=== PATIENT | female | born 1935 | race Caucasian/White ===

== ENCOUNTER 2020-10-15 09:01 | Outpatient (REF) | payer MEDICARE, SELFPAY ==
[2020-10-15 10:27] LABS: INTERNATIONAL NORM RATIO 1.7 (0.9-1.1); Prothrombin Time 20.5 SEC (10.8-13.0)
== END 2020-10-15 09:02 | disposition home or self-care (01) ==
LOC: HO.LAB 09:01
PROVIDERS: PCP Family Medicine; Visit Provider Internal Medicine Cardiovascular Disease
DX: I48.91 Unspecified atrial fibrillation (principal)
CPT/HCPCS: 36415; 85610

== ENCOUNTER 2020-10-31 13:34 | Outpatient (REF) | payer MEDICARE, SELFPAY ==
[2020-10-31 15:03] LABS: Prothrombin Time 36.6 SEC (10.8-13.0)
== END 2020-10-31 13:35 | disposition home or self-care (01) ==
LOC: HO.LABR 13:34
PROVIDERS: PCP Internal Medicine Cardiovascular Disease; Visit Provider Internal Medicine Cardiovascular Disease
DX: I48.91 Unspecified atrial fibrillation (principal)
CPT/HCPCS: 36415; 85610

== ENCOUNTER 2020-11-17 13:30 | Emergency (ER) | payer MEDICARE, SELFPAY ==
[2020-11-17 13:49] VITALS: BP 158/78; PULSE 84; RESP 18; TEMP 36.7; O2SAT 95; BMI 25.7
--- NOTE | 2020-11-17 14:31 | ED.GENADULT ---
HPI - General Adult General Chief complaint: Extremity Problem <CHRISTIAN Johnson - Last Filed: 11/17/20 18:10> Stated complaint: abscess <CHRISTIAN Johnson - Last Filed: 11/17/20 18:10> Time Seen by Provider: 11/17/20 14:26 <CHRISTIAN Johnson - Last Filed: 11/17/20 18:10> History of Present Illness HPI narrative: Patient complains of a sore on the right inner thigh that is been there for several days, it got bigger a few days ago and then drained some bloody yellow fluid and was less swollen, no fever <CHRISTIAN Johnson - Last Filed: 11/17/20 18:10> Related Data Home medications: Previous Rx's Medication Instructions Recorded doxycycline hyclate 100 mg PO BID 7 Days #14 cap 11/17/20 <CHRISTIAN Johnson - Last Filed: 11/17/20 18:10> Allergies/adverse reactions: Allergies Allergy/AdvReac Type Severity Reaction Status Date / Time latex Allergy Rash Verified 11/17/20 13:48 Penicillins Allergy Rash Verified 11/17/20 13:48 <CHRISTIAN Johnson - Last Filed: 11/17/20 18:10> Review of Systems Review of Systems: Pains of painful red area on right thigh No fever no chills no dizziness no weakness no joint pain no rash no numbness or weakness <CHRISTIAN Johnson - Last Filed: 11/17/20 18:10> Yes all other systems are reviewed and are negative <CHRISTIAN Johnson - Last Filed: 11/17/20 18:10> [facility] Past Medical History Source: nursing notes reviewed <CHRISTIAN Johnson - Last Filed: 11/17/20 18:10> Social History Social History: Social History Alcohol intake: never <CHRISTIAN Johnson - Last Filed: 11/17/20 18:10> Physical Exam Vital Signs: Vital Signs: Last Vital Signs Temp 98.1 F 11/17/20 13:49 Pulse 84 11/17/20 13:49 Resp 18 11/17/20 13:49 BP 158/78 H 11/17/20 13:49 Pulse Ox 95 11/17/20 13:49 Body Mass Index 25.7 <CHRISTIAN Johnson - Last Filed: 11/17/20 18:10> Vital Signs: Last Vital Signs Temp 98.1 F 11/17/20 13:49 Pulse 84 11/17/20 13:49 Resp 18 11/17/20 13:49 BP 158/78 H 11/17/20 13:49 Pulse Ox 95 11/17/20 13:49 Body Mass Index 25.7 <Flash France MD - Last Filed: 12/09/20 06:57> General appearance no acute distress, A&O x3, relaxed cooperative The head is normocephalic atraumatic Neck is supple Respiratory no distress Right inner thigh has a 2 cm x 2 cm area of induration with some central scabbing and redness which is tender to the touch, there is no discharge now, no surrounding cellulitis, there is full range of motion in the ankle the knee and the hip <CHRISTIAN Johnson - Last Filed: 11/17/20 18:10> Course Course Course Narrative: Area of induration in right thigh is cleansed and irrigated with Betadine, anesthesia was 6 cc of 1% lidocaine A small incision was made with discharge of some pus and a large amount of cheesy material consistent with a sebaceous cyst It was probed with forceps loculations broken up and packed and dressing placed <CHRISTIAN Johnson - Last Filed: 11/17/20 18:10> I have reviewed the chart <Flash France MD - Last Filed: 12/09/20 06:57> Discharge Plan Discharge Clinical Impression: Infected sebaceous cyst of skin <CHRISTIAN Johnson - Last Filed: 11/17/20 18:10> Patient Disposition: Home, Self-Care <CHRISTIAN Johnson - Last Filed: 11/17/20 18:10> Additional Instructions: Return to the emergency room in 2 days for packing removal wound check Return any time for spreading redness, worse pain and swelling, fever, any worse condition or any concerns <CHRISTIAN Johnson - Last Filed: 11/17/20 18:10> Prescriptions: New doxycycline hyclate 100 mg capsule 100 mg PO BID 7 Days Qty: 14 RF: 0 <CHRISTIAN Johnson - Last Filed: 11/17/20 18:10> Interventions: ED Discharge Assessment Last Done: 11/17/20 16:09 <CHRISTIAN Johnson - Last Filed: 11/17/20 18:10> Discharge Date/Time: 11/17/20 16:10 <CHRISTIAN Johnson - Last Filed: 11/17/20 18:10>
[2020-11-17] MEDS: Lidocaine HCl 1 % MPF 5 ML VIAL SUBCUT ×2 (14:49)
[2020-11-17] MEDS: Acetaminophen 325 MG TABLET 650 MG PO (16:05)
== END 2020-11-17 16:10 | disposition home or self-care (01) ==
PROVIDERS: Emergency Provider Emergency Medicine; PCP Family Medicine
DX: L72.3 Sebaceous cyst (principal)
CPT/HCPCS: 10060; 87071; 87147; 87186; 87205; 99283; 99284

== ENCOUNTER 2020-11-19 17:26 | Emergency (ER) | payer MEDICARE, SELFPAY ==
[2020-11-19 19:22] VITALS: BP 148/82; PULSE 74; RESP 16; TEMP 36.4; O2SAT 97; BMI 26.2
--- NOTE | 2020-11-19 19:37 | ED.GENADULT ---
HPI - General Adult General Chief complaint: Wound/Laceration Stated complaint: Wound check on leg Time Seen by Provider: 11/19/20 19:28 Source: patient Mode of arrival: ambulatory Limitations: no limitations History of Present Illness HPI narrative: Patient tells me she was here 2 days ago for an abscess on her right upper leg. Patient had an I and D and packing was placed. She is on doxycycline has been taking this. She denies any fevers or chills. Related Data Previous Rx's Medication Instructions Recorded doxycycline hyclate 100 mg PO BID 7 Days #14 cap 11/17/20 Allergies Allergy/AdvReac Type Severity Reaction Status Date / Time latex Allergy Rash Verified 11/17/20 13:48 Penicillins Allergy Rash Verified 11/17/20 13:48 Review of Systems Review of Systems: Yes all other systems are reviewed and are negative Constitutional: Constitutional: Reports no additional constitutional complaints, Denies body ache(s), Denies chills, Denies fever(s), Denies headache(s) and Denies weakness Eyes: Eyes: Reports no additional eye complaints and Denies change in vision ENT: Reports system reviewed and no additional complaints, except as documented, Denies dizziness, Denies headache(s), Denies nasal congestion, Denies nasal discharge and Denies neck pain Cardiovascular: Cardiovascular: Reports no additional cardiovascular complaints, Denies chest pain, Denies leg edema and Denies dyspnea Respiratory: Respiratory: Reports no additional respiratory complaints, Denies cough and Denies dyspnea Gastrointestinal: Gastrointestinal: Reports no additional gastrointestinal complaints, Denies abdominal pain, Denies diarrhea, Denies nausea and Denies vomiting Genitourinary: Genitourinary: Reports no additional female genitourinary complaints and Denies urinary incontinence Musculoskeletal: Musculoskeletal: Reports no additional musculoskeletal complaints, Denies back pain, Denies arthralgias, Denies joint swelling, Denies neck pain, Denies numbness and Denies tingling Integumentary/Breasts: Skin/Breast: Reports system reviewed and no additional complaints, except as docu, Reports furuncle, Reports swelling, Reports erythema and Denies rash Neurologic: Reports system reviewed and no additional complaints, except as documented, Denies Abnormal speech present, Denies dizziness, Denies headache(s), Denies numbness, Denies tingling and Denies weakness [facility] Past Medical History Attestation statement: The following information was validated with the patient. Source: old records reviewed and nursing notes reviewed Social History Social History Alcohol intake: never Smoked in Last 30 Days: No Use of substances other than those prescribed or required for medical reasons: No Advance Directives: No Advance Directives Information Provided: Yes Physical Exam Vital Signs: Vital Signs: Last Vital Signs Temp 97.5 F 11/19/20 19:22 Pulse 74 11/19/20 19:22 Resp 16 11/19/20 19:22 BP 148/82 H 11/19/20 19:22 Pulse Ox 97 11/19/20 19:22 Body Mass Index 26.2 Const: General: cooperative, healthy appearing, comfortable and no acute distress Orientation/consciousness: patient oriented x3 Limitations: no limitations HENMT: Head: Yes normal to inspection Ears: hearing grossly normal bilaterally General nose exam: Normal external nose present Face and sinus: Yes normal facial exam Mouth: Normal oral and palatal mucosa present Throat: Yes posterior oropharynx normal Eyes: General: appearance normal, both eyes and all related structures Pupils: Equal, round and reactive pupils present Neck: Neck: Yes normal visual inspection Chest: Chest palpation & inspection: normal inspection of the chest Resp: Effort & Inspection: normal respiratory effort Auscultation: clear to auscultation bilaterally Cardio: Rate: regular rate Rhythm: regular rhythm Peripheral pulses: Peripheral pulses 2+ throughout GI: Inspection: Yes normal to inspection Palpation (GI): Soft to palpation and nontender Auscultation: normal bowel sounds Back/Spine/Pelvis: Thoracic/Lumbar Spine: thoracic and lumbar spine normal to inspection Skin: Other: The right upper inner thigh there is a medium-sized abscess with packing in place. There is some mild erythema surrounding the site with tenderness. There is no fluctuance or induration at the site. General skin exam: no rashes or lesions noted Neuro: General: patient oriented x3, no focal motor deficits and normal sensation to monofilament Cranial nerves: Yes Equal, round and reactive pupils present Cognition (Neuro): normal cognition Speech: No Abnormal speech present Gait exam (Neuro): Normal gait present Motor exam (neuro): 5/5 motor strength present throughout Extrem: General: Yes normal to inspection Course Course Course Narrative: Healing abscess. Packing was removed and area was cleansed with topical antibiotic ointment and a dressing. Review worrisome signs and symptoms and when to return to the emergency department. Comfortable discharge home. Discharge Plan Discharge Clinical Impression: Abscess Patient Disposition: Home, Self-Care Instructions: Abscess Follow-up (ED) Additional Instructions: Wash the area with soap and water every day and keep it covered Continue your antibiotics Prescriptions: No Action doxycycline hyclate 100 mg capsule 100 mg PO BID 7 Days Qty: 14 RF: 0 Referrals: Gaye Marion MD [Primary Care Provider] - 2 days Interventions: ED Discharge Assessment Last Done: 11/19/20 20:08 Discharge Date/Time: 11/19/20 20:11
--- NOTE | 2020-11-19 20:10 | PC.NURSE ---
CELIA IBARRA REMOVED PACKING FROM WOUND.
== END 2020-11-19 20:11 | disposition home or self-care (01) ==
PROVIDERS: Emergency Provider Emergency Medicine; PCP Family Medicine
DX: L02.415 Cutaneous abscess of right lower limb (principal); Z48.00 Encounter for change or removal of nonsurgical wound dressing
CPT/HCPCS: 99282; 99284

== ENCOUNTER 2020-11-24 12:14 | Outpatient (REF) | payer MEDICARE, SELFPAY ==
[2020-11-24 13:21] LABS: INTERNATIONAL NORM RATIO 2.1 (0.9-1.1); Prothrombin Time 25.5 SEC (10.8-13.0)
== END 2020-11-24 12:15 | disposition home or self-care (01) ==
LOC: HO.LAB 12:14
PROVIDERS: Visit Provider Internal Medicine Cardiovascular Disease
DX: I48.91 Unspecified atrial fibrillation (principal)
CPT/HCPCS: 36415; 85610